=== PATIENT | male | born 1970 | race Caucasian/White ===

== ENCOUNTER 2024-07-23 09:34 | Day surgery (SDC) | payer BC ==
[2024-07-18 08:24] VITALS: BMI 28.5
[2024-07-23] MEDS ORDERED: Isoproterenol 0.2 MG/1 ML AMP ONE (10:11)
[2024-07-23] MEDS ORDERED: Protamine Sulfate 50 MG/5 ML VIAL ONE ×2 (10:11→14:23)
[2024-07-23] MEDS ORDERED: Heparin 10,000 UNITS/ 10 ML VIAL ONE (10:11)
[2024-07-23] MEDS ORDERED: Heparin 25,000 units/D5W 500 ML ONE (10:11)
[2024-07-23] MEDS ORDERED: Midazolam HCl 2 mg/2 ml Vial ONE (11:26)
[2024-07-23] MEDS ORDERED: fentaNYL 50 mcg/mL 1 mL Vial ONE (11:26)
[2024-07-23] MEDS ORDERED: Dexamethasone 20 MG/5 ML VIAL ONE (12:45)
[2024-07-23] MEDS ORDERED: PROPOFOL 200 MG/20 ML VIAL ONE (12:45)
[2024-07-23] MEDS ORDERED: Glycopyrrolate 0.2 MG/ML 5 ML SYRINGE ONE (12:45)
[2024-07-23] MEDS ORDERED: Ondansetron PF 4 MG/2 ML Vial ONE (12:45)
[2024-07-23] MEDS ORDERED: Rocuronium Bromide 10 MG/ML (10ML VIAL) ONE (12:45)
[2024-07-23] MEDS ORDERED: ePHEDrine Sulfate 50 MG/10 ML VIAL ONE (12:45)
[2024-07-23] MEDS ORDERED: SUGAMMADEX SODIUM 200 MG/2 ML VIAL ONE (14:35)
== END 2024-07-23 18:53 | disposition home or self-care (01) ==
LOC: SDC 09:34
PROVIDERS: ATTEND Internal Medicine Cardiovascular Disease
PROC: 4A023FZ Measurement of Cardiac Rhythm, Percutaneous Approach (ICD-10-PCS; principal; 2024-07-23)
DX: I48.0 Paroxysmal atrial fibrillation (principal); E11.9 Type 2 diabetes mellitus without complications; Z88.8 Allergy status to other drugs, medicaments and biological substances; Z79.84 Long term (current) use of oral hypoglycemic drugs; Z79.01 Long term (current) use of anticoagulants; Z79.899 Other long term (current) drug therapy
CPT/HCPCS: 85347; 86850; 86900; 86901; 93005; 93010; 93623; 93656; 93657; C1730; C1732; C1733; C1759; C1760; C1766; C1769; C1894; J1100; J1644; J2250; J2405; J2704; J2720; J3010

== ENCOUNTER 2025-03-20 14:31 | Outpatient (CLI) | payer BC | END 2025-03-20 14:32 | disposition home or self-care (01) | LOC: BICRAD 14:31 | PROVIDERS: ATTEND Family Medicine | DX: M25.562 Pain in left knee (principal); M17.12 Unilateral primary osteoarthritis, left knee ==

== ENCOUNTER 2025-03-26 09:33 | Outpatient (CLI) | payer BC | END 2025-03-26 09:34 | disposition home or self-care (01) | LOC: BICMRI 09:33 | PROVIDERS: ATTEND Orthopaedic Surgery | DX: M25.562 Pain in left knee (principal); S83.242A Other tear of medial meniscus, current injury, left knee, initial encounter ==